=== PATIENT | female | born 1990 | race African-American/Black ===

== ENCOUNTER → 2023-08-08 | Outpatient (CLI) | payer SELFPAY ==
[2023-08-08 13:38] LABS: Amphetamine Urine VISTA NEGATIVE (<1000 ng/mL); Barbiturate Urine VISTA NEGATIVE (< 200 ng/mL); Benzodiazepine Urine VISTA NEGATIVE (< 200 ng/mL); Cocaine Urine VISTA NEGATIVE (< 300 ng/mL); Ecstacy Urine VISTA NEGATIVE (< 500 ng/mL); Methadone Urine VISTA NEGATIVE (< 300 ng/mL); PCP Urine VISTA NEGATIVE (< 25 ng/mL); THC Urine VISTA NEGATIVE (< 50 ng/mL); Vista UDS pH Range 6
[2023-08-10 07:08] LABS: Chlamydia By Nucleic Acid AMP Negative (Negative); Gonococcus By Nucleic Acid AMP Negative (Negative)
== END | disposition home or self-care (01) ==
PROVIDERS: Advanced Practice Midwife; Referring Provider Registered Nurse; Visit Provider Registered Nurse
DX: Z34.90 Encounter for supervision of normal pregnancy, unspecified, unspecified trimester (principal)
CPT/HCPCS: 80307; 87086; 87088; 87491; 87591

== ENCOUNTER → 2023-09-28 | Outpatient (CLI) | payer MEDICAID, SELFPAY ==
[2023-09-28 18:18] LABS: Free T3 1.8 pg/mL (2.18-3.98); T4 Free Direct 0.86 ng/dL (0.76-1.46); Thyroid Stim Hormone (TSH) 0.28 uIU/mL (0.358-3.74)
[2023-09-28 19:00] LABS: Hepatitis B Surface Antigen Non-Reactive (Nonreactive); Hepatitis C Antibody Non-Reactive (Nonreactive)
[2023-10-02 09:09] LABS: Anti-Thyroglobulin AB < 1.0 IU/mL (0.0-0.9); Thyroid Peroxidase AB 13 IU/mL (0-34)
== END | disposition home or self-care (01) ==
PROVIDERS: Referring Provider Advanced Practice Midwife; Visit Provider Advanced Practice Midwife
DX: O26.899 Other specified pregnancy related conditions, unspecified trimester (principal); Z67.91 Unspecified blood type, Rh negative; E07.9 Disorder of thyroid, unspecified; O99.280 Endocrine, nutritional and metabolic diseases complicating pregnancy, unspecified trimester; Z3A.00 Weeks of gestation of pregnancy not specified
CPT/HCPCS: 36415; 84432; 84439; 84443; 84481; 86376; 86800; 86803; 86850; 86900; 86901; 87340

== ENCOUNTER → 2023-11-26 | Outpatient (CLI) | payer MEDICAID, SELFPAY ==
[2023-11-26 14:56] LABS: Absolute Lymphocyte Count 1.48 X10^3/uL (0.83-4.51); Absolute Neutrophil Count 6.3 X10^3/uL (2.0-7.7); Basophil# 0.02 X10^3/uL; Basophil% 0.2 % (0-1); Eosinophil# 0.21 X10^3/uL; Eosinophils% 2.4 % (0-5); Lymphocyte # 1.48 X10^3/ul (0.83-4.51); Lymphocyte % 16.7 % (19-41); Mean Corp Hgb Conc 33.3 g/dL (32-36); Mean Corpuscular Hgb 29.8 pg (27.0-32.0); Mean Corpuscular Volume 89.3 fL (81-99); Monocyte% 7.9 % (0-10); NRBC Flagged by Analyzer 0 % (0-5); Neutrophil # 6.34 X10^3/uL (2.7-7.7); Neutrophil % 71.7 % (47-70); Platelet Count 211 K/mm3 (150-450); RBC Distribution Width CV 14.7 % (11.6-14.6); RBC Distribution Width SD 47.8 fl (35.1-43.9); Red Blood Count 4.03 M/mm3 (4.2-5.4); White Blood Count 8.9 K/mm3 (4.4-11.0)
[2023-11-26 15:52] LABS: Free T3 2.2 pg/mL (2.18-3.98); Glucose Challenge Gest 1H 50g 71 mg/dL (70-140); T4 Free Direct 0.88 ng/dL (0.76-1.46); Thyroid Stim Hormone (TSH) 0.44 uIU/mL (0.358-3.74)
[2023-11-26 16:05] LABS: HIV - WCH Non-Reactive (Nonreactive); Syphilis Antibodies Non-reactive
[2023-11-26 16:09] LABS: ALB/GLOB Ratio 0.7 RATIO (0.9-2.4); AST(SGOT) 20 U/L (15-37); Alanine Aminotransfer ALT/SGPT 18 U/L (13-56); Albumin, Serum 2.9 g/dL (3.2-5.0); Alkaline Phosphatase 94 U/L (45-117); Anion Gap 5 (5-15); BUN 7 mg/dL (7-18); BUN/Creat Ratio 13.7 RATIO (10-20); Calcium,Total 9.4 mg/dL (8.5-10.1); Chloride 106 mmol/L (98-107); Creatinine, Serum 0.51 mg/dL (0.55-1.02); EST Glomerular Filtration Rate 149 mL/min (>60); Est Glom Filt Rate - Afr Amer 180 mL/min (>60); Globulin 3.9 g/dL (2.2-4.2); Glucose 76 mg/dL (74-106); Potassium 3.9 mmol/L (3.5-5.1); Protein, Total 6.8 g/dL (6.4-8.2); Sodium Level 135 mmol/L (136-145)
== END | disposition home or self-care (01) ==
PROVIDERS: Obstetrics & Gynecology; Referring Provider Nurse Practitioner Women's Health; Visit Provider Nurse Practitioner Women's Health
DX: O99.712 Diseases of the skin and subcutaneous tissue complicating pregnancy, second trimester (principal); L29.9 Pruritus, unspecified; O99.282 Endocrine, nutritional and metabolic diseases complicating pregnancy, second trimester; E07.9 Disorder of thyroid, unspecified; O26.892 Other specified pregnancy related conditions, second trimester; Z67.91 Unspecified blood type, Rh negative; Z13.1 Encounter for screening for diabetes mellitus; Z3A.24 24 weeks gestation of pregnancy
CPT/HCPCS: 80053; 82950; 84439; 84443; 84481; 85025; 86703; 86780; 86850; 86900; 86901

== ENCOUNTER → 2024-01-22 | Outpatient (CLI) | payer MEDICAID, SELFPAY | END | disposition home or self-care (01) | LOC: LABSPEC 10:46 | PROVIDERS: Referring Provider Obstetrics & Gynecology; Visit Provider Obstetrics & Gynecology | DX: O09.93 Supervision of high risk pregnancy, unspecified, third trimester (principal); Z3A.00 Weeks of gestation of pregnancy not specified | CPT/HCPCS: 87081 ==

== ENCOUNTER 2024-02-16 12:00 | Outpatient (CLI) | payer MEDICAID, SELFPAY ==
[2024-02-16 12:52] LABS: ROM Internal Control Test YES-OK TO RESULT pt. (Internal QC); ROM Patient Test Negative (Negative)
[2024-02-16 13:00] VITALS: BMI 25.7
[2024-02-16 13:01] VITALS: PULSE 89; RESP 14; TEMP 36.4; O2SAT 97
[2024-02-16 13:05] VITALS: PULSE 202; PULSE 86; O2SAT 80; O2SAT 95
[2024-02-16 13:06] VITALS: BP 118/71; PULSE 87
--- NOTE | 2024-02-17 13:42 | OB.TRI.PN_ITS ---
Progress Notes Date of Service: 02/17/24 Progress Note: Patient presents for triage evaluation secondary to vaginal discharge FHT: 135 Moderate variability reactive no decelerations category I tracing [place]: occasional mild Contractions Assessment and plan: unchanged cervical exam, negative ROM, Reactive NST, re assuring maternal and status patient discharged to home to follow-up on sunday in office. See problem list details for additional plan information. Laboratory Studies: Laboratory Tests 02/16/24 Range/Units 12:20 Vag Amniotic Fld Detect Negative (Negative) Charges/Coding Multi Select Codes Urinary/Genital Urinary/Genital CPT Codes: 73207-29 non-stress test Interp Assessment & Plan (1) Vaginal discharge during : COMMENT: ROM neg, unchanged cervical exam. d/c home (2) Severe needle phobia: COMMENT: Much discussion about 28 wk labs and did agree to do. (3) Thyroid disease: COMMENT: prior to -hypothyroid. Labs with NOB. Thyroid antibody+, monitor TSH/Free T4/T3 Q trimester. labs abnormal second trimester. Discussed with JV-Endo consult (4) History of marijuana use: COMMENT: neg at NOB. prior to use before bedtime, states has not used in this , discussed it is not recommended in . (5) Rh negative status during : QUALIFIERS: Trimester: third trimester Qualified Code(s): O26.893 - Other specified related conditions, third trimester; Z67.91 - Unspecified blood type, Rh negative COMMENT: rhogam @ 28 wks. A+, Patient has NEVER received rhogam. antibody screen neg at 20 weeks. (6) Depression: QUALIFIERS: Depression Type: unspecified Qualified Code(s): F32.A - Depression, unspecified COMMENT: in counseling; no med (7) Anxiety: (8) Supervision of high-risk : QUALIFIERS: Trimester: third trimester Qualified Code(s): O09.93 - Supervision of high risk , unspecified, third trimester COMMENT: PRR, , LEYDI 02/15/24, PC Ishaan Bradley Partner- Triston (9) : QUALIFIERS: Weeks of gestation: 39 weeks Qualified Code(s): Z3A.39 - 39 weeks gestation of COMMENT: anatomy nl, discussed genetic & carrier testing-declines, Rubella Immune ([facility])
== END 2024-02-16 13:40 | disposition home or self-care (01) ==
LOC: WPOUT 12:17 → WP 12:18
PROVIDERS: Visit Provider Advanced Practice Midwife
DX: O99.891 Other specified diseases and conditions complicating pregnancy (principal); N89.8 Other specified noninflammatory disorders of vagina; O09.93 Supervision of high risk pregnancy, unspecified, third trimester; O99.283 Endocrine, nutritional and metabolic diseases complicating pregnancy, third trimester; E03.9 Hypothyroidism, unspecified; O26.893 Other specified pregnancy related conditions, third trimester; Z67.91 Unspecified blood type, Rh negative; O99.343 Other mental disorders complicating pregnancy, third trimester; F32.A Depression, unspecified; Z3A.39 39 weeks gestation of pregnancy
CPT/HCPCS: 59025; 59050; 84112; 99221; G0378

== ENCOUNTER 2024-02-20 13:49 | Inpatient (IN) | payer MEDICAID, SELFPAY ==
[2024-02-20] VITALS (32 sets, daily range): BP systolic 101–125; BP diastolic 55–75; PULSE 76–100; RESP 16–24; TEMP 36.2–37.3; O2SAT 88–100; BMI 24.9
[2024-02-20 13:12] LABS: ROM Internal Control Test YES-OK TO RESULT pt. (Internal QC)
[2024-02-20 13:14] LABS: ROM Patient Test POSITIVE (Negative)
[2024-02-20] MEDS: 0.9% Saline Lock 10 ML Syringe IV (14:10)
--- NOTE | 2024-02-20 14:20 | HP.PCM.OB_ITS ---
HPI - General General Date of Admission: 02/20/24 HPI Narrative DARIAN LUKE, is a 33 y/o @ 40 weeks 5 days who presents to L&D with SROM. She was found to be 4/70/-2, which is unchanged from prior exam. patient states that her water broke at 10:30 and she hopes to be delivered before midnight and is ok with starting pitocin. She is unsure about an epidural. Maternal Data Information LEYDI Calculator Estimated Delivery Date Method Current WG Current Estimate 02/15/24 LMP (Certain) 40w 5d PFSH PFSH Medical History Gonorrhea Thyroid disease UTI (urinary tract infection) Home Medications ?Medication ?Instructions ?Recorded ?Last Taken ?Type multivit-min no.71-iron fum 28 1 cap PO DAILY 07/03/23 Unknown History mg-folate no.1 1 mg-dha 300 mg capsule (PNV-Timblin) Allergy/AdvReac Type Severity Reaction Status Date / Time amoxicillin Allergy Mild unknown Verified 02/20/24 13:57 Family History Mother Diabetes Hypertension Grandmother Diabetes maternal Hypertension maternal Surgical History History of elective Social History adopted: No household members: significant other and children number of children: 2 current occupational status: unemployed current occupation: [employer] pets and animals: No history of recent travel: No sexually active: Yes Smoking Status: Never smoker alcohol intake: current alcohol intake frequency: holidays/special occasions only Alcohol type: wine details: not while substance use type: marijuana well-balanced diet: daily or most days caffeine: Yes Type: tea Number of servings: 1 eating out: 1-3 times/week during the past year weight has: remained stable what type of physical activity do you participate in: none lyle/quaker: Mormon seatbelt use: always do you feel safe at home: Yes additional social history: Partner- Triston History 5 Elective abortions 2 Hx Para 2 Spontaneous abortions Hx # Term Pregnancies Ectopic pregnancies Hx # Pregnancies Multiple births # of living children 2 Past Pregnancies Del. Date Name GA/Weeks Outcome Route Bth Weight Infant Gen Labor Lgth Anesthesia Del Locatn Provider FOB 02/16/17 Kirk 40 live - full term 7#13oz Male epidural Ayaka Lopez 02/20/22 Ishaan 40 live - full term 7#5oz Male epidu harjeet Goldstein Delivery Date: 02/16/17 Last Updated by: Trish Jovani Ketler tear unknown degree Delivery Date: 02/20/22 Last Updated by: Trish Jovani Ketler tear unknown degree Visit Details Expected Delivery Route/Plan Labor Preferences- CB/BF classes: no labor support person: Triston labor intervention preferences: [] pain management options preferred: limited unless requested cut cord/dad catch: yes!! : yes PP control planned: [] discussed possible routes of delivery and associated risks: [] special requests: [] Plans Covid status: [] Flu vaccine: declines Tdap vaccine: declines Rhogam: given LARC form signed: yes Problem list reviewed and updated with the most current plan of care details and appropriate orders placed. Relevant counseling for the gestational age provided. Continue routine care and follow up unless otherwise noted in visit notes/problem list details OB Flowsheet Initial Weight: Not Recorded Date -?-?-?-?-?-?-?-?-?-?-?-?- EGA Weight BP Urine Prot -?-?-?-?-?-?-?-?-?-?-?-?- Glucose FHR FuHt Pres Dilation -?-?-?-?-?-?-?-?-?-?-?-?- Effaced St Visit Note 08/08/23 -?-?-?-?-?-?-?-?-?-?-?-?- 12w 5d 155 lb 112/74 -?-?-?-?-?-?-?-?-?-?-?-?- 144 -?-?-?-?-?-?-?-?-?-?-?-?- KW- CRL cons wit h dates. declines NIPT. First at [facility]. Neg blood type, did not have Rhogam previously even though FOB + blood type. Second child positive blood type. Discussed risks of not having Rhogam and agrees to taylor m this . wants to obtain labs at [place]-labs given to patient. KW- CRL cons with dates. dec lines NIPT. First at [facility]. Neg blood type, did not have Rhogam previously even though FOB + blood type. Second child positive blood type. Discussed risks of not having Rhogam and agrees to rhogam this . wants to obtain labs at [place]-labs given to patient. Anatomy US ordered 08/31/23 -?-?-?-?-?-?-?-?-?-?-?-?- 16w 0d 157 lb 4 oz 121/76 Nega tive -?-?-?-?-?-?-?-?-?-?-?-?- Negative 158 -?-?-?-?-?-?-?-?-?-?-?-?- KW- No vb/crampi ng. possible flutters. US scheduled for 09/24 KW- No vb/cramping. possible flutters. US scheduled for 09/24. Had labs drawn yesterday in [place]. awaiting results 09/25/23 -?-?-?-?-?-?-?-?-?-?-?-?- 19w 4d 158 lb 8 oz 117/75 -?-?-?-?-?-?-?-?-?-?-?-?- 145 -?-?-?-?-?-?-?-?-?-?-?-?- KW- no vb/crampi ng. good fm. US today. to contact for NOB labs 10/30/23 -?-?-?-?-?-?-?-?-?-?-?-?- 24w 4d 164 lb 4 oz 117/72 Nega tive -?-?-?-?-?-?-?-?-?-?-?-?- Negative 151 -?-?-?-?-?-?-?-?-?-?-?-?- MH-No VB, LOF. G ood FM. Initially declines 3rd trim labs-discussed and agrees. 11/26/23 -?-?-?-?-?-?-?-?-?-?-?-?- 28w 3d 165 lb 111/68 Negative -?-?-?-?-?-?-?-?-?-?-?-?- Negative 156 27.5 -?-?-?-?-?-?-?-?-?-?-?-?- JV- pt is tearfu l today about feeling lonely and sad often. She does not want medication. list of counselors given. Seems to have good relationship with significant other. 28 week labs today pending. rhogam given. additional labs ordered for all over bod y itching. 12/27/23 -?-?-?-?-?-?-?-?-?-?-?-?- 32w 6d 168 lb 116/81 Negative -?-?-?-?-?-?-?-?-?-?-?-?- Negative 145 32 -?-?-?-?-?--?-?-?-?-?-?-?- KW- no vb/lof/ct x. good fm. LARC today. still feeling tearful and lonely most days. did not call a counselor-agrees to start zoloft. script sent 01/22/24 -?-?-?-?-?-?-?-?-?-?-?-?- 36w 4d 168 lb 105/70 -?-?-?-?-?-?-?-?-?-?-?-?- 135 36 Cephalic 1.5 -?-?-?-?-?-?-?-?-?-?-?-?- SM- SM- no vb lof good fm no reu glar ctx 01/31/24 -?-?-?-?-?-?-?-?-?-?-?-?- 37w 6d 171 lb 117/76 Negative -?-?-?-?-?-?-?-?-?-?-?-?- Negative 140 37 Cephalic 2 -?-?-?-?-?-?-?-?-?-?-?-?- SM- no vb lof go od fm no reugalr ctx, had abodminal pain last week doing better now 02/07/24 -?-?-?-?-?-?-?-?-?-?-?-?- 38w 6d 172 lb 2 oz 110/76 Nega tive -?-?-?-?-?-?-?-?-?-?-?-?- Negative 145 38 Cephalic 2 -?-?-?-?-?-?-?-?-?-?-?-?- 60 -2 MH-No VB, LOF. Good FM. No reg CTX. Reviewed S&S labor 02/14/24 -?-?-?-?-?-?-?-?-?-?-?-?- 39w 6d 171 lb 110/74 Negative -?-?-?-?-?-?-?-?-?-?-?-?- Negative 140 38 Cephalic 3 -?-?-?-?--?-?-?-?-?-?-?-?- 70 -2 SM- no vb lof good fm increased discharge. return sunday for membrane sweep 02/18/24 -?-?-?-?-?-?-?-?-?-?-?-?- 40w 3d 170 lb 103/68 -?-?-?-?-?-?-?-?-?-?-?-?- 130 39 Cephalic 4 -?-?-?-?-?-?-?-?-?-?-?-?- 70 -1 SM- no vb lof good fm irregular ctx membranes swept IOL 41 weeks set up ROS Constitutional Constitutional: Denies change in weight, fatigue, fever(s), headache(s), poor appetite or weakness Eyes Eyes: Denies blurry vision, change in vision, seeing flashes or spots in vision ENT HEENT: Denies dizziness, headache(s), loss taste/smell or sore throat Cardiovascular Cardiovascular: Denies chest pain, dizziness, dyspnea, irregular heart rhythm, leg edema, palpitations, rapid heart rate or vomiting Respiratory/Chest Respiratory/Chest: Denies chest tightness, cough, dyspnea or breast pain Gastrointestinal Gastrointestinal: Denies abdominal pain, anorexia, constipation, cramping, diarrhea, hemorrhoids, vomiting or weight changes Genitourinary Genitourinary: Denies dysuria, flank pain, genital lesions, genital pain, urinary frequency or urinary urgency Musculoskeletal Musculoskeletal: Denies back pain, difficulty walking, joint pain, limited range of motion, muscle cramps or numbness Integumentary Integumentary: Denies lesions or unusual bruising Neurologic Neurologic: Denies abnormal movements, abnormal speech, dizziness, numbness, seizure-like activity or syncope Psychiatric Psychiatric: Denies anxiety, behavioral changes, change in appetite, change in libido, cognitive impairment, confusion, depression, difficulty concentrating, hallucinations or suicidal thoughts Endocrine Endocrinology: Denies excessive sweating, polydipsia or polyuria Hematologic/Lymphatic Hematologic/Lymphatic: Denies easy bleeding, easy bruising or lymphadenopathy Allergic/Immunologic Allergic/Immunologic: Denies itchy eyes, lip swelling, seasonal rhinorrhea, rhinitis, throat swelling, tongue swelling, eczemia, wheezing or asthma Vital Signs Vital Signs Vital Signs: 02/20/24 12:53 02/20/24 12:53 02/20/24 12:53 Temperature 97.3 F L Temperature Source Temporal Pulse Rate Respiratory Rate 18 Blood Pressure BP Systolic BP Diastolic Pulse Ox 02/20/24 12:54 02/20/24 12:54 02/20/24 14:15 Temperature Temperature Source Temporal Pulse Rate 83 Respiratory Rate Blood Pressure 101/55 L BP Systolic 101 BP Diastolic 55 Pulse Ox 02/20/24 14:15 02/20/24 14:15 02/20/24 14:15 Temperature Temperature Source Pulse Rate 86 Respiratory Rate 16 Blood Pressure 105/64 BP Systolic 105 BP Diastolic 64 Pulse Ox 02/20/24 14:15 02/20/24 14:15 Temperature 98.3 F Temperature Source Pulse Rate Respiratory Rate Blood Pressure BP Systolic BP Diastolic Pulse Ox 97 Weight Weight: 169 lb Body Mass Index (BMI) 24.9 Physical Exam Const alert, oriented x3, no apparent distress and healthy appearing General Appearance: cooperative; Negative for anxious HEENT normocephalic Face and Sinus: normal facial exam Eyes EOMs intact bilaterally and no scleral icterus General Eye: normal appearance of both eyes Neck full ROM and supple Lymph Lymphatic: no lymphadenopathy noted Chest Chest: abnormal inspection of the chest Resp normal respiratory effort Effort and Inspection: able to speak in complete sentences Cardio regular rate GI soft to palpation and non-tender Inspection: gravid Palpation: soft; Negative for tender Amniotic Fluid: ROM+plus Back/Spine no CVA tenderness Extremity normal to inspection, full ROM and no clubbing, cyanosis or edema General Extremity: Negative for calf tenderness or edema Skin Lesions: no lesions Rashes: no rashes Psych mental status grossly normal Labs Labs Labs: Blood Type O NEGATIVE Antibody Screen NEGATIVE Hct 36.0 % (37-47) L Hgb 12.0 g/dL (12.0-15.0) Syphilis Total Ab Non-reactive Hep Bs Antigen Non-Reactive (Nonreactive) Hepatitis C Antibody Non-Reactive (Nonreactive) Chlamydia DNA (VIDHI) Negative (Negative) N.gonorrhoeae DNA (VIDHI) Negative (Negative) HIV 1&2 Antibody Non-Reactive (Nonreactive) Glucose 1 Hr 50 gm 71 mg/dL (70-140) Miscellaneous Test Assessment & Plan (1) Delayed delivery after SROM (spontaneous rupture of membranes): (2) Vaginal discharge during : COMMENT: ROM neg, unchanged cervical exam. d/c home (3) Severe needle phobia: COMMENT: Much discussion about 28 wk labs and did agree to do. (4) Thyroid disease: COMMENT: prior to -hypothyroid. Labs with NOB. Thyroid antibody+, monitor TSH/Free T4/T3 Q trimester. labs abnormal second trimester. Discussed with JV-Endo consult (5) History of marijuana use: COMMENT: neg at NOB. prior to use before bedtime, states has not used in this , discussed it is not recommended in . (6) Rh negative status during : QUALIFIERS: Trimester: third trimester Qualified Code(s): O26.893 - Other specified related conditions, third trimester; Z67.91 - Unspecified blood type, Rh negative COMMENT: rhogam @ 28 wks. A+, Patient has NEVER received rhogam. antibody screen neg at 20 weeks. (7) Depression: QUALIFIERS: Depression Type: unspecified Qualified Code(s): F32.A - Depression, unspecified COMMENT: in counseling; no med (8) Anxiety: (9) Supervision of high-risk : QUALIFIERS: Trimester: third trimester Qualified Code(s): O09.93 - Supervision of high risk , unspecified, third trimester COMMENT: PRR, , LEYDI 02/15/24, Ishaan Abreu Partner- Triston (10) : QUALIFIERS: Weeks of gestation: 40 weeks Qualified Code(s): Z3A.40 - 40 weeks gestation of COMMENT: anatomy nl, discussed genetic & carrier testing-declines, Rubella Immune () PLAN: Plan Patient presents IOL, plan management for with pitocin. Pain management: plans epidural. GBS negative. Management of any complications: none I have reviewed the [facility] and made any clinically relevant updates.
[2024-02-20] MEDS: Lactated Ringers 1,000 ML 50 ML IV (14:43)
[2024-02-20 14:48] LABS: Absolute Lymphocyte Count 1.37 X10^3/uL (0.83-4.51); Basophil# 0.01 X10^3/uL; Basophil% 0.1 % (0-1); Eosinophil# 0.04 X10^3/uL; Eosinophils% 0.6 % (0-5); Hematocrit 37.4 % (37-47); Hemoglobin 12.7 g/dL (12.0-15.0); Lymphocyte # 1.37 X10^3/ul (0.83-4.51); Lymphocyte % 19.7 % (19-41); Mean Corpuscular Hgb 30.2 pg (27.0-32.0); Mean Corpuscular Volume 88.8 fL (81-99); Mean Platelet Vol. 10.6 fl (6.2-12.0); Monocyte# 0.47 X10^3/uL; Monocyte% 6.7 % (0-10); NRBC Flagged by Analyzer 0 % (0-5); Neutrophil # 5.03 X10^3/uL (2.7-7.7); Neutrophil % 72.2 % (47-70); Platelet Count 175 K/mm3 (150-450); RBC Distribution Width CV 12.9 % (11.6-14.6); RBC Distribution Width SD 41.6 fl (35.1-43.9); Red Blood Count 4.21 M/mm3 (4.2-5.4)
[2024-02-20] MEDS: Oxytocin 15 Units/NS 250ml 15 UNITS/250 ML IV.SOLN 2 UNITS IV (14:50)
[2024-02-20 15:28] LABS: Syphilis Antibodies Non-reactive
[2024-02-20] MEDS: Lactated Ringers 1,000 ML 999 ML IV (16:31)
[2024-02-20 16:54] LABS: Amphetamine Urine VISTA NEGATIVE (<1000 ng/mL); Barbiturate Urine VISTA NEGATIVE (< 200 ng/mL); Benzodiazepine Urine VISTA NEGATIVE (< 200 ng/mL); Cocaine Urine VISTA NEGATIVE (< 300 ng/mL); Ecstacy Urine VISTA NEGATIVE (< 500 ng/mL); Methadone Urine VISTA NEGATIVE (< 300 ng/mL); PCP Urine VISTA NEGATIVE (< 25 ng/mL); THC Urine VISTA NEGATIVE (< 50 ng/mL); Vista UDS pH Range 7
[2024-02-20] MEDS: fentaNYL-bupivacaine (epidural) 100 ML BAG EPIDURAL (17:45)
[2024-02-20] MEDS: Oxytocin 15 Units/NS 250ml 15 UNITS/250 ML IV.SOLN 83 UNITS IV (21:05)
--- NOTE | 2024-02-20 21:11 | EX.PCM.OBVAG ---
Assessment & Plan (1) Delayed delivery after SROM (spontaneous rupture of membranes): (2) Vaginal discharge during : COMMENT: ROM neg, unchanged cervical exam. d/c home (3) Severe needle phobia: COMMENT: Much discussion about 28 wk labs and did agree to do. (4) History of marijuana use: COMMENT: neg at NOB. prior to use before bedtime, states has not used in this , discussed it is not recommended in . (5) Rh negative status during : QUALIFIERS: Trimester: third trimester Qualified Code(s): O26.893 - Other specified related conditions, third trimester; Z67.91 - Unspecified blood type, Rh negative COMMENT: rhogam @ 28 wks. A+, Patient has NEVER received rhogam. antibody screen neg at 20 weeks. (6) Depression: QUALIFIERS: Depression Type: unspecified Qualified Code(s): F32.A - Depression, unspecified COMMENT: in counseling; no med (7) Anxiety: (8) Supervision of high-risk : QUALIFIERS: Trimester: third trimester Qualified Code(s): O09.93 - Supervision of high risk , unspecified, third trimester COMMENT: PRR, , LEYDI 02/15/24, PC Kirk, Ishaan Partner- Triston (9) : QUALIFIERS: Weeks of gestation: 40 weeks Qualified Code(s): Z3A.40 - 40 weeks gestation of COMMENT: anatomy nl, discussed genetic & carrier testing-declines, Rubella Immune ([facility]) (10) Thyroid disease: COMMENT: prior to -hypothyroid. Labs with NOB. Thyroid antibody+, monitor TSH/Free T4/T3 Q trimester. labs abnormal second trimester. Discussed with JV-Endo consult as of 02/20/24, pt unsure about possible thryoid disorder Maternal Data Information LEYDI Calculator Estimated Delivery Date Method Current WG Current Estimate 02/15/24 LMP (Certain) 40w 5d Final LEYDI Source: LMP Vaginal Delivery Maternal Presentation Maternal Presentation: Spontaneous Rupture of Membranes Type of Induction: Pitocin Vaginal Delivery Information Procedure Performed: Spontaneous Vaginal Delivery Surgeon/Practitioner: Robina Palomino Date of Procedure: 02/20/24 Pre-Procedure Diagnosis: 33y/o @ 40 weeks 5 days, srom Post-Procedure Diagnosis: 33y/o @ 40 weeks 5 days, srom Type of anesthesia: Epidural Estimated Blood Loss: 400cc Time of Delivery: 20:58 Findings Description of procedure: The patient was found to be in a large pool of blood despite a category 1 traecing. She was found to be completely dilated. Patient began pushing and delivered the head in the OP presentation. The head was delivered atraumatically. The anterior and posterior shoulders delivered without complication followed by the rest of the and the infant was placed on the maternal abdomen. Delayed cord clamping was employed for approximately 60 seconds. Cord was clamped and cut and gentle traction was applied to the cord and the placenta delivered spontaneously immediately following it was noted to be intact with three-vessel cord. There was noted to be a partial placental abruption. The perineum and vagina were inspected and noted to have a 1st degree perineal laceration. this was repaired with a 3-0 vicryl EBL was 400cc. Patient and infant tolerated delivery well. 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
--- NOTE | 2024-02-20 22:20 | DCINST_ITS ---
Discharge Instructions Diet Discharge Diet: No restrictions Activity Discharge Activity: Return to Normal Activity, May Not Drive (while taking narcotic pain medications.) and May Shower May resume sexual activity in: 4-6 weeks Dressing / Incision Call your doctor if your incision/area has: Continuous Slow Oozing, Sudden Increased Bleeding, Increased Pain/ Swelling, Increased Redness and Foul Smelling Discharge Follow Up Care Please Follow Up With: Robina Palomino, DO When: Call [phone] to make an appointment with your doctor in 6 weeks. If you had elevated blood pressure or 4th degree laceration, you will need to be seen in 2 weeks. Test Results: Test results from this visit will be discussed in further detail at your follow- up appointment, if applicable. Discharge Plan Admission Admit Date/Time: 02/20/24 13:49 Attending Provider: Robina Palomino Primary Care Provider: Care Physician,No Primary Discharge Orders/Prescriptions Prescriptions: No Action PNV-[place] 28-1-300 mg capsule 1 cap PO DAILY Referrals / Follow Up: Care Physician,No Primary [Primary Care Provider] -
--- NOTE | 2024-02-20 22:20 | DCINST_ITS ---
Discharge Instructions Diet Discharge Diet: No restrictions Activity Discharge Activity: Return to Normal Activity, May Not Drive (while taking narcotic pain medications.) and May Shower May resume sexual activity in: 4-6 weeks Dressing / Incision Call your doctor if your incision/area has: Continuous Slow Oozing, Sudden Increased Bleeding, Increased Pain/ Swelling, Increased Redness and Foul Smelling Discharge Follow Up Care Please Follow Up With: Robina Palomino, DO When: Call [phone] to make an appointment with your doctor in 6 weeks. If you had elevated blood pressure or 4th degree laceration, you will need to be seen in 2 weeks. Test Results: Test results from this visit will be discussed in further detail at your follow- up appointment, if applicable. Discharge Plan Admission Admit Date/Time: 02/20/24 13:49 Attending Provider: Robina Palomino Primary Care Provider: Care Physician,No Primary Discharge Orders/Prescriptions Prescriptions: No Action PNV-[place] 28-1-300 mg capsule 1 cap PO DAILY Referrals / Follow Up: Care Physician,No Primary [Primary Care Provider] -
[2024-02-20] MEDS: Benzocaine/Lanolin/Aloe Vera 85 GM Spray 1 SPRAY TOPICAL (22:47)
[2024-02-21] VITALS (9 sets, daily range): BP systolic 108–117; BP diastolic 59–70; PULSE 78–88; RESP 16; TEMP 36.1–36.6; O2SAT 98
[2024-02-21] MEDS: Ibuprofen 600 MG Tablet PO ×3 (04:30→20:14)
--- NOTE | 2024-02-21 07:23 | PCM.PN.OB ---
Subjective Subjective Patient doing well without complaints. Tolerating PO. Ambulating and voiding without difficulty. feeding well. Denies chest pain, shortness of breath, calf pain/swelling, fevers, chills, lightheadedness. Objective Data Objective Data Vital Signs: Vital Signs Temp Pulse Resp BP Pulse Ox O2 Del Method 97.0 F L 78 16 108/59 L 97 Room Air 02/21/24 04:30 02/21/24 04:25 02/21/24 04:30 02/21/24 04:25 02/20/24 21:18 02/21/24 04:30 Oxygen Delivery Method Room Air Weight: 169 lb Body Mass Index (BMI) 24.9 Intake & Output: Intake and Output for Last 24 Hours 02/19/24 02/20/24 02/21/24 23:59 23:59 23:59 Intake Total 1467.09 / 1467.09 250 / 250 Output Total 700 / 700 Balance 767.09 / 767.09 250 / 250 Lab / Micro Data 02/20/24 14:10 Labs: Laboratory Results - last 24 hr 02/20/24 13:00: Vag Amniotic Fld Detect POSITIVE H 02/20/24 14:10: WBC 7.0, RBC 4.21, Hgb 12.7, Hct 37.4, MCV 88.8, MCH 30.2, MCHC 34.0, RDW Std Deviation 41.6, RDW Coeff of Jung 12.9, Plt Count 175, MPV 10.6, Immature Gran % (Auto) 0.700, Neut % (Auto) 72.2 H, Lymph % (Auto) 19.7, Schuyler % (Auto) 6.7, Eos % (Auto) 0.6, Baso % (Auto) 0.1, Absolute Neuts (auto) 5.0, Absolute Lymphs (auto) 1.37, Nucleated RBC % 0, Syphilis Total Ab Non-reactive, Blood Type O NEGATIVE, Antibody Screen NEGATIVE 02/20/24 15:00: Urine Opiates Screen NEGATIVE, Urine Methadone Screen NEGATIVE, Ur Barbiturates Screen NEGATIVE, Ur Phencyclidine Scrn NEGATIVE, Ur Amphetamines Screen NEGATIVE, MDMA (Ecstasy) Screen NEGATIVE, U Benzodiazepines Scrn NEGATIVE, Urine Cocaine Screen NEGATIVE, U Cannabinoids Screen NEGATIVE, Ur Drug Screen Comment ROS Constitutional Constitutional: Reports systems reviewed and no addt'l complaints, except as documented Cardiovascular Cardiovascular: Reports systems reviewed and no addt'l complaints, except as documented Respiratory/Chest Respiratory/Chest: Reports systems reviewed and no addt'l complaints, except as documented Gastrointestinal Gastrointestinal: Reports systems reviewed and no addt'l complaints, except as documented Physical Exam Const alert, oriented x3 and no apparent distress HEENT Head and Scalp: atraumatic Resp normal respiratory effort GI soft to palpation and non-tender Bimanual Exam - Vag & Uterus: uterus non-tender Uterus Palpation: uterus fundus firm (below Umbilicus) Assessment & Plan (1) Vaginal delivery: COMMENT: JSam IAL 40 PLAN: Plan s/p PPD # 1 1. routine post delivery care 2. breast feeding- support given 3. rh neg- give rhogam PRN 4. rubella immune
--- NOTE | 2024-02-21 14:33 | CASEMGMT ---
Social Work Assessment Labor and Delivery Unit Patient Address:[address] [place] [address] Phone number: [phone] Date of Referral: 02/20/24 Time of Referral:? 1510 Referred By: Bri Carlton Date of Intervention: 02/21/24? Time of Intervention:? 1100 Reason for Referral:? mental health history and marijuana use Sw completed chart review and acknowledges social work consult due to maternal mental health history and use of marijuana during . Sw presented to bedside and introduced self to mother of baby (MOB- Marissa Bridges) and father of baby (FOB- Triston Jason, 07/22/90). Sw explained reason for sw intervention and completed psychosocial assessment. History obtained from: medical records, MOB and FOB Household composition: Currently residing in the family home is POLI QUINTERO, LEON's first son: Kirk (Kimberlee) and parents 2 year old, Ishaan. [place] baby will be included in residence when ready for discharge. Parents deny any housing concerns reporting it is safe and adequate. Patient's parent/guardian status:? ?Parents report that they have been together for 5 years after meeting on [place]. They are not but do reside together. baby is second baby for parents together. No concerns reported of domestic violence or intimate partner violence Medical History: ?LEON is 33 year old female who is 5, para 2- now 3 following labor and delivery of . LEON received routine care during with [facility]. LEON presented to hospital and delivered baby on 02/20/24 via vaginal delivery at 40 weeks gestation. Baby boy, named Caden Ramsay, was born weighing 7lb 15oz with apgars of 9 and 9 at one and five minutes of life, respectfully. LEON states that she is breast feeding and it is going well. Baby will be followed by Dr. Benjamin for pediatrics. Educational Status:? Both parents graduated from high school. POLI obtained his Master's Degree. No concerns with reading, learning or comprehension. 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 Infant Supplies: Parents have obtained all necessary baby supplies, including: car seat, safe sleep space, clothes, diapers and wipes. Childcare/Caregiver(s): LEON reports that she will be the primary caregiver to baby along with POLI when he is not at work. ? Transportation:?? POLI has his drivers license and a reliable means of transportation, LEON does not have her drivers license and does not drive. LEON reports that sometimes transportation is challenging, but she has friends and family, and FOB, who help her get where she needs to go. Programs/Agencies Involved: ???MOB reports to being connected to: [employer] insurance through [employer], SNAP, WIC, Help Me Grow and the [facility]. Children Services/Legal Issues:??No prior involvement with children services. Rolan informed MOB of need for to make referral to [facility] Children services due to maternal use of marijuana during . Parents express understanding. - Rolan called [facility] and spoke to hotline screener: Krystal. Krystina states that this referral will not be screened in at this time. Behavioral Health Issues: ??Mental Health History: POLI [id number] that he has struggled with anxiety from time to time when he has been working too much and stretches himself too thin. POLI denies that his mental health has ever impacted his daily ability to function. LEON reports that she has been diagnosed with anxiety and depression. LEON states that [facility] prescribed her medication to start taking towards the end of her to help manage her mental health during the period, however she never got it filled. LEON states that she believes that she had depression after her second son was born. LEON reports to feeling isolated at that time because POLI was working a lot and at times would need to travel. Parents stated that close to that time they had moved to [place] and were 8 hours away from LEON's closest family and friends. 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 LEON states that she is slightly worried about experiencing and is receptive to information and resources provided by Rolan. ?? Substance Use History:?LEON reports to smoking marijuana a couple of times a week to help her have an appetite and to help her stay away at night. LEON reports that she did not sleep good during , and in the evenings she would get really tired, so she would smoke marijuana or drink a THC tea to help her stay awake until it was time to go to bed. FOB denies substance use. ? Family History:?Parents deny substance use/ addiction issues or significant mental health diagnoses among their family members. ? Drug Screens: MOB urine toxicology screen was negative for all substances at time of delivery. Baby's urine toxicology screen was also negative for all substances. Baby had a meconium delivery so they are still waiting on mec results. Family/Social Stressors:? Parents deny any issues, concerns or stressors at this time. Support Systems: LEON identifies that FOB and both sets of grandparents are her biggest supports at this time. Depression/Shaken Baby/Safe Sleeping: Rolan educated parents on signs and symptoms of baby blues and mood and anxiety disorders to be mindful of during this period. MOB and FOB both receptive to learning what symptoms look like and how to talk to each other if either of them feel as though they are struggling. MOB states that she starts to feel isolated when she is the only one home with the children most of the day when FOB is at work. MOB receptive to talking to her OBGYN if necessary or taking the prescribed medications if she feels as though her mental health is struggling. Rolna educated parents on shaken baby prevention and ABCs of safe sleep. Parents express understanding. ASSESSMENT:? MOB and baby admitted following labor and delivery of . MOB received routine care and has been attentive to baby during admission. FOB also observed to provide loving and appropriate care to baby. MOB with mental health history, history of depression and marijuana use. All of these issues/ concerns discussed throughout completion of assessment. Parents were talkative and cooperative in completing assessment with rolan. LEON is connected to a lot of community resources that help her and her children. Parents have obtained all necessary baby supplies and have natural supports in place. Safe Plan of Care for infant related to substance use:?LEON reports that she has no intention of using any type of THC or marijuana product now that baby is born and she is providing breast milk. PLAN:?? No other services requested or indicated. MOB and baby to be discharged when medically ready. Parents were provided literature regarding: signs and symptoms of baby blues and mood and anxiety disorders, Help Me Grow, shaken baby prevention, ABCs of safe sleep and a list of county resources that are available for them should any needs present themselves. Melissa Bowre, TEST BAKER, THERMOFORMING OPERATOR
--- NOTE | 2024-02-21 14:33 | CASEMGMT ---
Social Work Assessment Labor and Delivery Unit Patient Address:[address] [place] [address] Phone number: [phone] Date of Referral: 02/20/24 Time of Referral:? 1510 Referred By: Bri Carlton Date of Intervention: 02/21/24? Time of Intervention:? 1100 Reason for Referral:? mental health history and marijuana use Sw completed chart review and acknowledges social work consult due to maternal mental health history and use of marijuana during . Sw presented to bedside and introduced self to mother of baby (MOB- Marissa Bridges) and father of baby (FOB- Triston Jason, 07/22/90). Sw explained reason for sw intervention and completed psychosocial assessment. History obtained from: medical records, MOB and FOB Household composition: Currently residing in the family home is POLI QUINTERO, LEON's first son: Kirk (Kimberlee) and parents 2 year old, Ishaan. [place] baby will be included in residence when ready for discharge. Parents deny any housing concerns reporting it is safe and adequate. Patient's parent/guardian status:? ?Parents report that they have been together for 5 years after meeting on [id number]. They are not but do reside together. baby is second baby for parents together. No concerns reported of domestic violence or intimate partner violence Medical History: ?LEON is 33 year old female who is 5, para 2- now 3 following labor and delivery of . LEON received routine care during with [facility]. LEON presented to hospital and delivered baby on 02/20/24 via vaginal delivery at 40 weeks gestation. Baby boy, named Caden Ramsay, was born weighing 7lb 15oz with apgars of 9 and 9 at one and five minutes of life, respectfully. LEON states that she is breast feeding and it is going well. Baby will be followed by Dr. Benjamin for pediatrics. Educational Status:? Both parents graduated from high school. POLI obtained his Master's Degree. No concerns with reading, learning or comprehension. 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. Infant Supplies: Parents have obtained all necessary baby supplies, including: car seat, safe sleep space, clothes, diapers and wipes. Childcare/Caregiver(s): LEON reports that she will be the primary caregiver to baby along with POLI when he is not at work. ? Transportation:?? POLI has his drivers license and a reliable means of transportation, LEON does not have her drivers license and does not drive. LEON reports that sometimes transportation is challenging, but she has friends and family, and FOB, who help her get where she needs to go. Programs/Agencies Involved: ???MOB reports to being connected to: [employer] insurance through [employer], SNAP, WIC, Help Me Grow and the [facility]. Children Services/Legal Issues:??No prior involvement with children services. Rolan informed MOB of need for to make referral to [facility] Children services due to maternal use of marijuana during . Parents express understanding. - Rolan called [facility] and spoke to hotline screener: Krystal. Krystina states that this referral will not be screened in at this time. Behavioral Health Issues: ??Mental Health History: POLI [id number] that he has struggled with anxiety from time to time when he has been working too much and stretches himself too thin. POLI denies that his mental health has ever impacted his daily ability to function. LEON reports that she has been diagnosed with anxiety and depression. LEON states that [facility] prescribed her medication to start taking towards the end of her to help manage her mental health during the period, however she never got it filled. LEON states that she believes that she had depression after her second son was born. LEON reports to feeling isolated at that time because POLI was working a lot and at times would need to travel. Parents stated that close to that time they had moved to [place] and were 8 hours away from LEON's closest family and friends. 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 LEON states that she is slightly worried about experiencing and is receptive to information and resources provided by Rolan. ?? Substance Use History:?LEON reports to smoking marijuana a couple of times a week to help her have an appetite and to help her stay away at night. LEON reports that she did not sleep good during , and in the evenings she would get really tired, so she would smoke marijuana or drink a THC tea to help her stay awake until it was time to go to bed. FOB denies substance use. ? Family History:?Parents deny substance use/ addiction issues or significant mental health diagnoses among their family members. ? Drug Screens: MOB urine toxicology screen was negative for all substances at time of delivery. Baby's urine toxicology screen was also negative for all substances. Baby had a meconium delivery so they are still waiting on mec results. Family/Social Stressors:? Parents deny any issues, concerns or stressors at this time. Support Systems: LEON identifies that FOB and both sets of grandparents are her biggest supports at this time. Depression/Shaken Baby/Safe Sleeping: Rolan educated parents on signs and symptoms of baby blues and mood and anxiety disorders to be mindful of during this period. MOB and FOB both receptive to learning what symptoms look like and how to talk to each other if either of them feel as though they are struggling. MOB states that she starts to feel isolated when she is the only one home with the children most of the day when FOB is at work. MOB receptive to talking to her OBGYN if necessary or taking the prescribed medications if she feels as though her mental health is struggling. Rolan educated parents on shaken baby prevention and ABCs of safe sleep. Parents express understanding. ASSESSMENT:? MOB and baby admitted following labor and delivery of . MOB received routine care and has been attentive to baby during admission. FOB also observed to provide loving and appropriate care to baby. MOB with mental health history, history of depression and marijuana use. All of these issues/ concerns discussed throughout completion of assessment. Parents were talkative and cooperative in completing assessment with rolan. LEON is connected to a lot of community resources that help her and her children. Parents have obtained all necessary baby supplies and have natural supports in place. Safe Plan of Care for infant related to substance use:?LEON reports that she has no intention of using any type of THC or marijuana product now that baby is born and she is providing breast milk. PLAN:?? No other services requested or indicated. MOB and baby to be discharged when medically ready. Parents were provided literature regarding: signs and symptoms of baby blues and mood and anxiety disorders, Help Me Grow, shaken baby prevention, ABCs of safe sleep and a list of county resources that are available for them should any needs present themselves. Melissa Bower, METAL CONTAINER MAKER, INVESTIGATOR CASH SHORTAGE
== END 2024-02-21 22:30 | disposition home or self-care (01) | DRG 560 ==
LOC: WPOUT 13:52 → WP 13:52
PROVIDERS: Admitting Provider Obstetrics & Gynecology; Referring Provider Obstetrics & Gynecology; Visit Provider Obstetrics & Gynecology
DX: O42.02 Full-term premature rupture of membranes, onset of labor within 24 hours of rupture (principal); Z37.0 Single live birth; O45.93 Premature separation of placenta, unspecified, third trimester; E03.9 Hypothyroidism, unspecified; F32.A Depression, unspecified; O99.344 Other mental disorders complicating childbirth; O99.284 Endocrine, nutritional and metabolic diseases complicating childbirth; O26.893 Other specified pregnancy related conditions, third trimester; Z67.41 Type O blood, Rh negative; O70.0 First degree perineal laceration during delivery; Z3A.40 40 weeks gestation of pregnancy; Z87.59 Personal history of other complications of pregnancy, childbirth and the puerperium
CPT/HCPCS: 59025; 59050; 80307; 84112; 85025; 86780; 86850; 86900; 86901; 99221; J7120; A4216; G0378

== ENCOUNTER → 2024-03-26 | Outpatient (CLI) | payer MEDICAID, SELFPAY ==
[2024-04-02 21:06] LABS: HPV APTIMA, High Risk Positive (Negative); HPV Genotype 16, Aptima Negative (Negative); HPV Genotype 18,45 Aptima Negative (Negative)
== END | disposition home or self-care (01) ==
LOC: LABSPEC 11:56
PROVIDERS: Referring Provider Nurse Practitioner Women's Health; Visit Provider Nurse Practitioner Women's Health
DX: Z12.4 Encounter for screening for malignant neoplasm of cervix (principal)
CPT/HCPCS: 87624; 88175; G0145